=== PATIENT | female | born 1945 | race Hispanic/Latino ===

== ENCOUNTER 2018-07-08 13:02 | Inpatient (IN) | payer OTHER ==
[~2018-07-08] VITALS: Ht 167.6 cm; Wt 62.7 kg
[2018-07-08 13:37] LABS: BASOPHILS % (AUTO) 0.5 % (0.0-5.0); EOSINOPHILS % (AUTO) 0.5 % (0.0-8.0); HEMATOCRIT 41.5 % (36-48); LYMPHOCYTES % (AUTO) 15.5 % (21.0-51.0); MEAN CORPUSCULAR HEMOGLOBIN 29.7 pg (27.0-33.0); MEAN CORPUSCULAR HGB CONC 32.7 g/dL (32.0-36.0); MEAN CORPUSCULAR VOLUME 90.9 fL (79-99); MONOCYTES % (AUTO) 6.5 % (3.0-13.0); PLATELET COUNT (AUTO) 136 K/uL (130-400); RED BLOOD CELL COUNT(AUTO) 4.57 MIL/uL (4.00-5.50); RED CELL DISTRIBUTION WIDTH 14.6 % (11.0-15.5); WHITE BLOOD COUNT (AUTO) 6.8 K/uL (4.8-10.8)
[2018-07-08 13:52] LABS: INR 0.95 (0.85-1.15); PARTIAL THROMBOPLASTIN TIME 24.2 SEC (26.3-35.5)
[2018-07-08 13:53] LABS: CREATININE 0.8 mg/dL (0.5-1.5); POTASSIUM 3.6 mmol/L (3.5-5.1)
[2018-07-08 14:04] LABS: BILIRUBIN,TOTAL 0.5 mg/dL (0.2-1.0)
[2018-07-08 14:50] LABS: APPEARANCE,URINE Clear (CLEAR); BILIRUBIN,URINE Small (NEGATIVE); COLOR,URINE Dark Yellow (YELLOW); GLUCOSE, URINE (UA) TRACE mg/dL (NEGATIVE); KETONES,URINE 15 mg/dL (NEGATIVE); LEUKOCYTE ESTERASE ,URINE Moderate (NEGATIVE); NITRATE,URINE Positive (NEGATIVE); OCCULT BLOOD,URINE Negative (NEGATIVE); PH,URINE 6.5 (5.0-8.0); PROTEIN,URINE POS 1+ (NEGATIVE)
[2018-07-08 14:58] LABS: AMPHET/METH SCREEN,URINE NEGATIVE (NEGATIVE); BARBITURATE SCREEN, URINE NEGATIVE (NEGATIVE); BENZODIAZEPINES SCREEN,URINE NEGATIVE (NEGATIVE); CANNABINOID SCREEN,URINE NEGATIVE (NEGATIVE); COCAINE SCREEN,URINE NEGATIVE (NEGATIVE); OPIATE SCREEN,URINE NEGATIVE (NEGATIVE); PHENCYCLIDINE SCREEN,URINE NEGATIVE (NEGATIVE)
[2018-07-08 15:15] LABS: BACTERIA,URINE Many /HPF (None Seen); MUCUS,URINE Many LPF (None Seen); RBC,URINE None Seen /HPF (0-1); SQUAMOUS EPITHELIAL CELL,UR 0-2 /HPF (0-2); WBC,URINE 26-50 /HPF (0-1)
[2018-07-08] MEDS ORDERED: GADODIAMIDE 10 MMOL/20 ML ML IV ONE (16:07)
[2018-07-08] MEDS ORDERED: CEFTRIAXONE SODIUM 1 GM ONE (16:08)
[2018-07-08] MEDS ORDERED: ONDANSETRON HCL 4 MG/2 ML VIAL IV PRN (19:00)
[2018-07-08] MEDS ORDERED: ACETAMINOPHEN 325 MG TAB PO PRN ×2 (19:00)
[2018-07-08] MEDS: DEXAMETHASONE SOD PHOSPHATE 4 MG/ML 1ML VIAL IVP SCH (22:00)
[2018-07-09] VITALS (24 sets, daily range): BP systolic 142–204; BP diastolic 60–99
[2018-07-09] MEDS ORDERED: DEXAMETHASONE SOD PHOSPHATE 4 MG/ML 5ML VIAL ONE (02:21)
[2018-07-09] MEDS: CEFTRIAXONE SODIUM 1 GM IV SCH ×2 (04:00→16:32)
[2018-07-09] MEDS: DEXAMETHASONE SOD PHOSPHATE 4 MG/ML 1ML VIAL IVP SCH ×3 (06:00→21:20)
[2018-07-09] MEDS ORDERED: DEXAMETHASONE SOD PHOSPHATE 10MG/ML 1ML VIAL ONE (08:58)
[2018-07-09] MEDS: FAMOTIDINE/PF 20 MG/2 ML VIAL IV SCH (09:00)
[2018-07-09] MEDS ORDERED: ONDANSETRON HCL 4 MG/2 ML VIAL ONE (09:03)
[2018-07-09] MEDS ORDERED: METF-445 PO (09:29)
[2018-07-09] MEDS ORDERED: GLYB5TAB8 PO (09:29)
[2018-07-09] MEDS ORDERED: NIFE10 PO (09:29)
[2018-07-09] MEDS ORDERED: PRAV10TA39 PO (09:29)
[2018-07-09] MEDS: HYDRALAZINE HCL 20 MG/ML VIAL IV PRN ×2 (11:56→16:33)
[2018-07-09] MEDS ORDERED: COMPOUND IV MISC 1 EACH IVSOLN MISC PRN (12:15)
--- NOTE | 2018-07-09 12:45 | NUR ---
Dr Ramirez in too see patient, review chart and talk to family. 30+ minutes spent talking to family with Paula Price RN translating. All questions answered and family thankful for time with MD. Family will discuss situation and options.
--- NOTE | 2018-07-09 13:45 | NUR ---
Hospitalist in to see patient and talk to family. Patient is more confused now but daughter state she voiced prior wishes on not wanting to be resuscitated. Daughters in agreement with patient's wish and DNR signed. Dr Acosta signed DNR. Order on chart.
[2018-07-09] MEDS: LEVETIRACETAM 1,000 MG in SODIUM CHLORIDE 0.9% 100 ML IV SCH ×2 (13:53→20:04)
[2018-07-09] MEDS: ACYCLOVIR SODIUM IV SCH ×2 (13:54→21:00)
[2018-07-09] MEDS: SODIUM CHLORIDE 0.9% IV SCH ×2 (13:54→21:00)
[2018-07-09] MEDS ORDERED: ACYCLOVIR SODIUM 1000 MG VIAL IV SCH (14:00)
[2018-07-09] MEDS ORDERED: MORPHINE SULFATE 2 MG/ML 1ML SYG IVP PRN (16:00)
[2018-07-09] MEDS ORDERED: LORAZEPAM 2 MG/ML 1 ML VIAL IVP PRN (16:00)
--- NOTE | 2018-07-09 16:42 | NUR ---
Re: Temp 101.6 Ice packs applied and room temp decreased. Patient is unable to take PO at this time, will reevaluate in one hour.
[2018-07-09] MEDS: INSULIN HUMULIN R 100 UNIT/ML 3ML SQ SCH ×2 (18:00→23:41)
[2018-07-09] MEDS ORDERED: LABETALOL 20 MG/4 ML DISP.SYRIN IV PRN (19:45)
[2018-07-10] VITALS (13 sets, daily range): BP systolic 141–181; BP diastolic 64–94
[2018-07-10] MEDS: HYDRALAZINE HCL 20 MG/ML VIAL IV PRN (01:07)
[2018-07-10] MEDS: CEFTRIAXONE SODIUM 1 GM IV SCH ×2 (03:08→16:02)
[2018-07-10 04:01] LABS: HEMATOCRIT 42.8 % (36-48); MEAN CORPUSCULAR HEMOGLOBIN 29.9 pg (27.0-33.0); MEAN CORPUSCULAR VOLUME 90.5 fL (79-99); PLATELET COUNT (AUTO) 149 K/uL (130-400); RED BLOOD CELL COUNT(AUTO) 4.72 MIL/uL (4.00-5.50); RED CELL DISTRIBUTION WIDTH 14.6 % (11.0-15.5); WHITE BLOOD COUNT (AUTO) 11.7 K/uL (4.8-10.8)
[2018-07-10 04:21] LABS: ALANINE AMINOTRANSFERASE 17 U/L (12-78); ALBUMIN 3.9 g/dL (3.5-5.0); ASPARTATE AMINOTRANSFERASE 14 U/L (10-37); BILIRUBIN,TOTAL 0.4 mg/dL (0.2-1.0); CARBON DIOXIDE 25 mmol/L (21-32); CHLORIDE 100 mmol/L (101-111); CREATININE 0.8 mg/dL (0.5-1.5); GLOMERULAR FILTR. RATE CALC 75 mL/min (>60); GLUCOSE,RANDOM 217 mg/dL (70-105); PHOSPHORUS 4.5 mg/dL (2.5-4.9); POTASSIUM 3.6 mmol/L (3.5-5.1); SODIUM SERUM 138 mmol/L (136-145); TOTAL PROTEIN, SERUM 8.3 g/dL (6.0-8.3); UREA NITROGEN, BLOOD 19 mg/dL (7-18)
[2018-07-10 04:36] LABS: AMMONIA < 10 umol/L (11-32)
[2018-07-10] MEDS: ACYCLOVIR SODIUM IV SCH ×3 (05:11→22:51)
[2018-07-10] MEDS: SODIUM CHLORIDE 0.9% IV SCH ×3 (05:11→22:51)
[2018-07-10] MEDS: INSULIN HUMULIN R 100 UNIT/ML 3ML SQ SCH ×3 (05:52→16:03)
[2018-07-10] MEDS: DEXAMETHASONE SOD PHOSPHATE 4 MG/ML 1ML VIAL IVP SCH ×3 (05:56→22:53)
--- NOTE | 2018-07-10 07:30 | NUR ---
PT WAS ASSESSED AND SEE PHYSICAL ASSESSMENT DOCUMENTATION.
[2018-07-10] MEDS: FAMOTIDINE/PF 20 MG/2 ML VIAL IV SCH (08:08)
[2018-07-10] MEDS ORDERED: SODIUM CHLORIDE 0.9% 250 ML IV ONE (08:41)
[2018-07-10] MEDS: LEVETIRACETAM 1,000 MG in SODIUM CHLORIDE 0.9% 100 ML IV SCH ×2 (09:23→20:49)
--- NOTE | 2018-07-10 11:00 | NUR ---
ADVISED DAUGHTERS OF PT'S TRANSFER AND ROOM NUMBER, ONE OF THE DAUGHTERS WANTED TO KNOW WHY TH PATIENT WAS BEING TRANSFERRED OUT. NOT SURE IF THE DAUGHTER WHO IS QUESTIONING IS UNDERSTANDING THE "COMFORT CARE" STATUS. SHE WAS TOLD BY NURSING STAFF THAT THE PATIENT WAS GOING TO BE TRANSFERRED SO MORE FAMILY COULD BE AROUND THE PATIENT.
--- NOTE | 2018-07-10 11:25 | NUR ---
PT REPORT WAS GIVEN TO MARIBELL THE CHARGE NURSE FOR 3RD FLOOR AND WAS ADVISED THAT PT WOULD BE TRANSFERRED AFTER SHE HAD HER LUNCH AND INSULIN GIVEN OR NOT.
--- NOTE | 2018-07-10 12:22 | NUR ---
PT IS BEING FED BY DAUGHTERS AND WAS GIVEN HER INSULIN TO COVER BLOOD SUGAR OF 233.
--- NOTE | 2018-07-10 12:55 | NUR ---
PT WAS TRANSFERRED TO ROOM 328, PT REPORT HAD BEEN GIVEN EARLIER. FAMILY AND DAUGHTERS AT BEDSIDE.
--- NOTE | 2018-07-10 15:36 | NUR ---
D/C PLAN CM spoke to pts family regarding d/c planning. pt unable to answer questions. Dtr named Magdalena Green at bedside. States pt is from [place] and was living with another dtr. [facility] plan is for pt to stay here in [place] with her. [facility] asked if hospice arrangements were discussed. States they are agreeable to services. [facility]O explained that kasey bed will need to be arranged and depends on availability. Dtr states she would like CM to send referrals to any accepting agency. CM obtained consent and fax referral. Plan for now is for pt to return home with dtr Magdalena Green with pending hospice services. States she will have assistance from her siblings to care for pt 30/11. CM to f/u Addendum: 07/10/18 at 1539 by HORTENSIA ANDRADE Amended: Links added.
--- NOTE | 2018-07-10 16:25 | NUR ---
[facility] baltazar received phone call from Marina with [facility]. States they will review kasey case and f/u with [facility] tomorrow AM.
[2018-07-11] VITALS (8 sets, daily range): BP systolic 146–194; BP diastolic 57–86
[2018-07-11] MEDS: INSULIN HUMULIN R 100 UNIT/ML 3ML SQ SCH ×5 (01:54→21:00)
[2018-07-11] MEDS: CEFTRIAXONE SODIUM 1 GM IV SCH ×2 (04:11→17:08)
[2018-07-11] MEDS: SODIUM CHLORIDE 0.9% IV SCH (05:49)
[2018-07-11] MEDS: ACYCLOVIR SODIUM IV SCH (05:49)
[2018-07-11] MEDS: DEXAMETHASONE SOD PHOSPHATE 4 MG/ML 1ML VIAL IVP SCH ×3 (05:49→23:24)
[2018-07-11] MEDS: FAMOTIDINE/PF 20 MG/2 ML VIAL IV SCH (09:55)
[2018-07-11] MEDS: LEVETIRACETAM 1,000 MG in SODIUM CHLORIDE 0.9% 100 ML IV SCH (09:59)
--- NOTE | 2018-07-11 11:49 | NUR ---
[facility] Sw [facility]. [facility] willing to discuss payment plan with family. SW spoke to family at bedside and they are will to meet with [facility]. Pt info faxed to [place]. [phone] Sw spoke to [facility], they are still reviewing referral.
--- NOTE | 2018-07-11 15:47 | NUR ---
[facility] denied, they have no kasey beds at this time. Pepper spoke to daughter who is agreeable to $800 a month charge thru [facility]. Daughters to get down payment together and make arrangements at home. DCP home with hospice in am
--- NOTE | 2018-07-11 16:34 | NUR ---
[facility] ACCEPTED Sw recd call from Thalia at [facility] [phone]. Family called and agreed to private pay terms, so [facility] will have DME delivered tomorrow, so family can have home ready and make payment. SW to f/u in am. Pt will transport in private car
--- NOTE | 2018-07-11 16:48 | NUR ---
Nutrition intervention: Nutrition notification as trigger. 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 Pt placed on comfort measures however JAN Tom reports pt does not know about comfort measures and diet is to be liberalize. DAKOTA spoke to pt's family, liberalize diet instructions given to family. Pt's daughter requesting finely chopped textures for easier chewing and promote increased po intake. Pt's daughter and at bedside with multiple nutrition questions, all questions answered by DAKOTA. Addendum: 07/11/18 at [address] Amended: Links added.
[2018-07-11] MEDS: HYDRALAZINE HCL 20 MG/ML VIAL IV PRN (19:09)
[2018-07-11] MEDS ORDERED: SODIUM CHLORIDE IV SCH ×2 (20:00)
[2018-07-11] MEDS ORDERED: ACYCLOVIR SODIUM IV SCH (20:00)
[2018-07-11] MEDS ORDERED: ACYCLOVIR IV SCH ×2 (20:00)
[2018-07-11] MEDS ORDERED: SODIUM CHLORIDE 0.9% IV SCH (20:00)
[2018-07-11] MEDS: LOSARTAN 50 MG TABLET PO SCH (23:23)
[2018-07-11] MEDS: LEVETIRACETAM 100 MG/ML 5 ML UDCUP PO SCH (23:24)
[2018-07-11] MEDS: FAMOTIDINE 20MG TAB 20 MG TAB PO SCH (23:24)
[2018-07-12 03:00] VITALS: BP 178/89
[2018-07-12] MEDS: HYDRALAZINE HCL 20 MG/ML VIAL IV PRN (03:18)
[2018-07-12 05:59] VITALS: BP 140/64
[2018-07-12] MEDS: DEXAMETHASONE SOD PHOSPHATE 4 MG/ML 1ML VIAL IVP SCH ×2 (06:42→13:41)
[2018-07-12] MEDS: INSULIN HUMULIN R 100 UNIT/ML 3ML SQ SCH ×2 (06:43→14:17)
[2018-07-12 08:00] VITALS: BP 147/77
[2018-07-12] MEDS ORDERED: LEVOFLOXACIN 500 MG TABLET PO SCH (09:00)
--- NOTE | 2018-07-12 09:28 | NUR ---
DCP: [facility] [phone] Pepper recd call from Thalia at [facility], [phone], DME delivered yesterday, Pt is good to go. Pepper met with daughter and OOHDNR was signed. Dr Woodall signed OOHDNR and gave dc order. Daughter to take in private car. Nurse Negro aware that pt is ready to go OOHDNR faxed to [facility]
[2018-07-12] MEDS: LOSARTAN 50 MG TABLET PO SCH (10:29)
[2018-07-12] MEDS: FAMOTIDINE 20MG TAB 20 MG TAB PO SCH (10:29)
[2018-07-12] MEDS: LEVETIRACETAM 100 MG/ML 5 ML UDCUP PO SCH (10:30)
[2018-07-12 11:30] VITALS: BP 152/78
--- NOTE | 2018-07-12 14:38 | NUR ---
REPORT GIVEN TO JAN DSOUZA FROM [facility] RE; UTI;ECOLI ON LEVAQUIN AND BP MEDICATION, AND ANTI SEIZURE MEDICATION AND DEXAMETHASONE. THEY STATES THEY WILL RESUME ALL MEDICATIONS.
--- NOTE | 2018-07-12 15:00 | NUR ---
DISCHARGED INSTRUCTIONS GIVEN PENDING TRANSPORTATION HOME D/C INSTRUCTIONS GIVEN TO DAUGHTER MISSY URRUTIA RE; HOSPICE CARE AND SERVICES AND CONTACT INFORMATION. STATES WILL CALL IF ANY QUESTIONS. EQUIPMENT ALREADY AT HOME PER DAUGHTER. NO DISTRESS AT THIS TIME, IV D/C INTACT, NO SOB, NO CONFUSION, AAOX3. REPORT GIVEN TO JAN DSOUZA FROM [facility]. MEDS TO KEEP SAME DOSE AND SCHEDULE AND ROUTE, NO CHANGES PER [facility] WILL CHANGE MEDS TO THEIR FINAL RECOMMENDATIONS.
[2018-07-12 15:29] VITALS: BP 146/64
== END 2018-07-12 16:30 | disposition hospice, home (50) | DRG 81 ==
LOC: EDH 13:02 → EDHIP 13:03 → 2BH 07-09 11:10 → 3DH 07-10 13:10 → UNDODISIN 07-12 16:30
PROVIDERS: ADMIT Internal Medicine; ATTEND Internal Medicine
DX: G93.6 Cerebral edema (principal); N30.00 Acute cystitis without hematuria; G81.94 Hemiplegia, unspecified affecting left nondominant side; G93.9 Disorder of brain, unspecified; E11.9 Type 2 diabetes mellitus without complications; I10 Essential (primary) hypertension; E78.2 Mixed hyperlipidemia; G93.89 Other specified disorders of brain; H47.619 Cortical blindness, unspecified side of brain; H54.3 Unqualified visual loss, both eyes; Z51.5 Encounter for palliative care; Z66 Do not resuscitate
CPT/HCPCS: 36415; 70450; 70544; 70547; 70553; 71045; 80053; 80305; 81001; 82140; 82550; 82948; 83735; 83874; 84100; 84484; 85025; 85027; 85610; 85730; 87077; 87088; 87186; 93005; 99291; A4218; A9579; G0378; J0133; J0360; J0696; J1100; J1815; J1953; J2405; J3490; J7030